=== PATIENT | male | born 1975 | race Two or more races ===

== ENCOUNTER 2018-03-28 13:06 | Outpatient (CLI) | payer OTHER ==
[2018-03-28 15:09] LABS: #Basophils 0.1 thou/uL (0.0-0.2); #Eosinphils 0.1 thou/uL (0.0-0.7); #Lymphocytes 1.8 thou/uL (1.20-3.40); #Monocytes 0.8 thou/uL (0.11-0.59); #Neutrophils 5.4 thou/uL (1.40-6.50); %Basophils 0.7 % (0.0-1.0); %Eosinophils 1.7 % (0.0-10.0); %Lymphocytes 21.8 % (21.0-51.0); %Monocytes 9.7 % (0.0-10.0); %Neutrophils 66.1 % (42.0-75.0); Hemoglobin 16.1 g/dL (14.0-18.0); Mean Corpuscular HGB CONC 33.7 g/dL (32.0-36.0); Mean Corpuscular Hemoglobin 29.3 pg (27.0-31.0); Mean Corpuscular Volume 86.9 fL (78.0-98.0); Mean Platelet Volume 6.5 fL (7.4-10.4); Platelet Count 251 thou/uL (130-400); RBC Distribution Width 12.1 % (11.5-14.5); Red Blood Cell (RBC) Count 5.48 mill/uL (4.70-6.10); White Blood Cell (WBC) Count 8.1 thou/uL (4.8-10.8)
[2018-03-28 15:38] LABS: Anion Gap 14 mmol/L (10-20); BUN (Urea Nitrogen) 14 mg/dL (8.9-20.6); Calc. Creatinine Clearance 0 mL/min (70-130); Calcium 9.3 mg/dL (7.8-10.44); Carbon Dioxide 25 mmol/L (22-29); Chloride 103 mmol/L (98-107); Estimated GFR-MDRD Greater than 90; Glucose 84 mg/dL (70-105); Potassium 4.4 mmol/L (3.5-5.1); Sodium 138 mmol/L (136-145)
== END 2018-03-28 13:07 | disposition home or self-care (01) ==
LOC: LABBT 13:06
PROVIDERS: ATTEND Specialist
DX: Z01.812 Encounter for preprocedural laboratory examination (principal); K60.3 Anal fistula
CPT/HCPCS: 80048; 85025

== ENCOUNTER 2018-04-04 05:59 | Day surgery (SDC) | payer OTHER ==
[2018-03-28 13:31] VITALS: BMI 31.2
[2018-04-04] MEDS ORDERED: CEFAZOLIN 2 GM/50 ML BAG ONE (06:31)
[2018-04-04] MEDS ORDERED: Ketorolac Tromethamine 30 MG/ML VIAL ONE (06:32)
[2018-04-04] MEDS ORDERED: Lidocaine 2% Jelly 5 ML TUBE ONE (06:45)
[2018-04-04] MEDS ORDERED: Bupivacaine/Epinephrine 0.25% 30 ML VIAL ONE (06:45)
[2018-04-04] MEDS ORDERED: Fentanyl 100 MCG/2 ML VIAL ONE (06:49)
--- NOTE | 2018-04-04 10:03 | OP ---
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 OPERATION PERFORMED: Rectal examination under anesthesia, fistulotomy. SURGEON: Dr. Travis Lozada ANESTHESIA: General endotracheal. INDICATIONS: The patient is a 42-year-old male. He has had this fistula in ano for 2-3 years. He h as chronic nodule from which material chronically drains. This is about 3-4 cm from the anal verge a t about the 10:30 radian. He is taken to the operating room at this time for examination and treatme nt. OPERATIVE PROCEDURE IN DETAIL: Informed consent was obtained. The patient was taken to the operatin g room where general anesthesia obtained with the patient in supine position. He was placed in dorsa l lithotomy position using Yellofin stirrups. Perianal area was trimmed of hair, prepped with Betadi ne, draped in sterile fashion. Local anesthetic was infiltrated in a 4 quadrant intersphincteric fas hion using 0.25% Marcaine with epinephrine. Additional local anesthetic was infiltrated on the locat ion of the fistula. The fistula was easily cannulated with a lacrimal duct probe and Angiocath. This tracked towards the anterior midline as expected. I was able to visualize peroxide coming through an opening within his anal canal. The whole tract appeared to be relatively superficial. I was able to pass a lacrimal d uct probe through to the internal opening. I then unroofed the tissue overlying the lacrimal duct pr obe. This did not involve any significant volume of sphincter muscle. The entire tract was unroofed and the probe was removed. I used a curet to debride the tract. Additional indurated tissue was ex cised. Hemostasis was meticulous. Additional local anesthetic was infiltrated. Gelfoam was placed within the anal canal and dry gauze dressing placed externally along with mesh pad. There were no co mplications. The patient tolerated the procedure well and was taken to recovery room in stable condi tion.
== END 2018-04-04 10:56 | disposition home or self-care (01) ==
LOC: SDC 05:59
PROVIDERS: ATTEND Specialist
PROC: 0DBQ0ZZ Excision of Anus, Open Approach (ICD-10-PCS; principal; 2018-04-04)
DX: K60.3 Anal fistula (principal); Z79.899 Other long term (current) drug therapy; Z88.0 Allergy status to penicillin; Z91.011 Allergy to milk products
CPT/HCPCS: J0131; J1885; J3010